=== PATIENT | male | born 1980 | race Hispanic/Latino ===

== ENCOUNTER 2020-08-29 10:05 | Emergency (ER) | payer SELFPAY | END 2020-08-29 10:27 | disposition left against medical advice (07) | LOC: ED 10:05 | DX: Z53.21 Procedure and treatment not carried out due to patient leaving prior to being seen by health care provider (principal) ==

== ENCOUNTER 2020-09-28 11:36 | Emergency (ER) | payer SELFPAY ==
[2020-09-28 11:59] VITALS: BP 161/78
--- NOTE | 2020-09-28 12:14 | Emergency Department Report ---
Chief Complaint: Urogenital-Male Stated Complaint: CATHETER IS LEAKING Time Seen by Provider: 09/28/20 11:53 - HPI History of Present Illness: 40-year-old male nontoxic well in appearnce with no acute signs of distress presents to the ED with complicant of garcia cath bag is leaking. Patient stated he banged his garcia cath bag on the corner of the table and has leakage from the bag site. Denies any other symptoms or injuries. Denies any complaints. Denies any abdominal pain, nausea, vomiting, chest pain, SOB. fever or chills. Patient is deaf and had written communication and exam. - Exam Vital Signs: Vital Signs 09/28/20 11:58 Temperature 98.0 F Pulse Rate 87 Respiratory 18 Rate Blood Pressure 161/78 [Right] O2 Sat by Pulse 98 Oximetry Physical Exam: normal physical exam. small area of cath is leaking. no abdominal pain. MSE screening note: Focused history and physical exam performed. Due to findings the following was ordered: ED Medical Decision Making - Medical Decision Making VSS. Garcia cath bag changed. Normal physical exam. Patient was instructed to Follow-up with a primary care doctor in 3-5 days or if symptoms worsen and continue return to emergency room as soon as possible. At time of discharge, the patient does not seem toxic or ill in appearance. No acute signs of distress noted. Patient agrees to discharge treatment plan of care. No further questions noted by the patient. ED Disposition for MSE Clinical Impression: Urinary catheter (Garcia) change required Disposition: DC-01 TO HOME OR SELFCARE Is pt being admited?: No Does the pt Need Aspirin: No Condition: Stable Instructions: Garcia Catheter Placement and Care (ED) Additional Instructions: Follow-up with a primary care doctor in 3-5 days or if symptoms worsen and continue return to emergency room as soon as possible. Referrals: PRIMARY MD MARIJA [Referring] - 3-5 Days MISHA DAUGHERTY MD [Staff Physician] - 3-5 Days
== END 2020-09-28 15:51 | disposition home or self-care (01) ==
LOC: ED 11:36
DX: T83.038A Leakage of other urinary catheter, initial encounter (principal); X58.XXXA Exposure to other specified factors, initial encounter
CPT/HCPCS: 99281